=== PATIENT | female | born 1960 | race Caucasian/White ===

== ENCOUNTER 2018-11-16 17:39 | Inpatient (IN) ==
[2018-11-16] MEDS ORDERED: Prochlorperazine 10 MG/2 ML VIAL IM ONE (17:56)
--- NOTE | 2018-11-16 18:49 | Emergency Department Note ---
Disposition Clinical Impression: Suicidal ideation, Homicidal ideation Disposition: Admitted As Inpatient Condition: Good Time of Disposition: 20:51 General Adult HPI - General Chief complaint: ED Psychiatric Symptoms Stated complaint: si/hi Time Seen by Provider: 11/16/18 17:49 Source: EMS Limitations: no limitations - History of Present Illness Pain Scale: 2 - Related Data Home Medications Medication Instructions Recorded Confirmed Albuterol Neb [Proventil Neb] 2.5 mg IH DAILY PRN 05/13/18 09/07/18 Aspirin [Lo-Dose Aspirin EC] 81 mg PO DAILY 05/13/18 09/07/18 Atorvastatin [Lipitor] 10 mg PO HS 05/13/18 09/07/18 lamoTRIgine [Lamictal] 25 mg PO HS 05/13/18 09/07/18 metFORMIN [Glucophage] 500 mg PO DAILY 05/13/18 09/07/18 Previous Rx's Medication Instructions Recorded Ondansetron ODT [Zofran ODT] 4 mg SL Q6HR PRN 5 Days #10 09/07/18 tab.rapdis Allergies Allergy/AdvReac Type Severity Reaction Status Date / Time bee venom protein (honey bee) Allergy See Verified 10/27/18 21:48 Comments prednisone Allergy Hives Verified 10/27/18 21:48 methocarbamol [From Robaxin] AdvReac See Verified 10/27/18 21:48 Comments morphine AdvReac See Verified 10/27/18 21:48 Comments naproxen AdvReac See Verified 10/27/18 21:48 Comments promethazine AdvReac Nausea Verified 10/27/18 21:48 quetiapine [From Seroquel] AdvReac Muscle Pain Verified 10/27/18 21:48 rofecoxib [From Vioxx] AdvReac See Verified 10/27/18 21:48 Comments MMR Allergy Anaphylaxis Uncoded 09/04/18 02:25 Past Medical History - Past Medical History Medical history: Reports: asthma, diabetes, hyperlipidemia, hypertension Surgical history: Reports: non-contributory Psychiatric history: Reports: anxiety, depression, previous psychiatric hospitalization - Social History Smoking Status: Current every day smoker Smokeless Tobacco Status: No Alcohol use: Reports: none Drug use: Reports: none Physical Exam - General Limitations: no limitations General appearance: alert Course Vital Signs Temperature 98.2 F 11/16/18 17:46 Pulse Rate 109 11/16/18 17:46 Respiratory Rate 20 11/16/18 17:46 Blood Pressure 131/81 11/16/18 17:46 O2 Sat by Pulse Oximetry 99 11/16/18 17:46 Temperature 98.2 F 11/16/18 17:46 Pulse Rate 109 11/16/18 17:46 Respiratory Rate 20 11/16/18 17:46 Blood Pressure 131/81 11/16/18 17:46 O2 Sat by Pulse Oximetry 99 11/16/18 17:46 Oxygen Delivery Oxygen Delivery Room Air Medical Decision Making - Lab Data Result diagrams: 11/16/18 18:48 11/16/18 18:48 Lab Results 11/16/18 11/16/18 11/16/18 Range/Units 18:48 18:48 19:22 WBC 7.4 (4.3-11.1) K/mcL RBC 4.77 (3.82-4.97) M/mcL Hgb 14.3 (11.5-15.4) g/dL Hct 43.8 (35.3-44.9) % MCV 91.8 (83.0-100.0) fL MCH 30.0 (28.0-33.3) pg MCHC 32.6 (31.6-35.5) g/dL RDW 12.3 (11.5-14.5) % Plt Count 228 (140-400) K/mcL MPV 10.1 (9.4-12.4) fL Immature Gran % 0.3 (0-4) % Seg Neutrophils % 68.1 % Lymphocytes % 21.3 % Monocytes % 8.8 % Eosinophils % 0.8 % Basophils % 0.7 % Neutrophils # 5.1 (1.6-8.9) K/mcL Lymphocytes # 1.6 (0.6-4.6) K/mcL Monocytes # 0.7 (0.0-1.3) K/mcL Eosinophils # 0.1 (0.0-0.6) K/mcL Basophils # 0.1 (0.0-0.2) K/mcL Sodium 139 (136-145) mEq/L Potassium 3.5 (3.5-5.1) mEq/L Chloride 105 (98-107) mEq/L Carbon Dioxide 28 (23-29) mEq/L BUN 17 (6-20) mg/dL Creatinine 0.83 (0.60-1.20) mg/dL Est GFR ( Amer) > 60 (> 60) Est GFR (Non-Af Amer) > 60 (> 60) BUN/Creatinine Ratio 20 (6-26) Glucose 83 (70-105) mg/dL Calculated Osmolality 289 (280-300) Calcium 9.6 (8.6-10.3) mg/dL Urine Color Yellow (Yellow) Urine Clarity Clear (Clear) Urine pH 6.5 (5.0-8.0) pH Units Ur Specific [place] 1.028 H (1.010-1.025) Urine Protein Negative (Neg-Trace) mg/dL Urine Glucose (UA) Normal (Normal) mg/dL Urine Ketones Trace H (Negative) mg/dL Urine Blood Trace H (Negative) Urine Nitrite Negative (Negative) Urine Bilirubin Negative (Negative) Urine Urobilinogen Normal (Normal) mg/dL Ur Leukocyte Esterase Moderate H (Negative) Urine Microscopic RBC 5-15 H (0-3) per hpf Urine Microscopic WBC 50-100 H (0-3) per hpf Ur Squamous Epith Cells Many H (None-Few) per lpf Urine Bacteria Moderate H (None-Few) per hpf Hyaline Casts Moderate H (None-Few) per lpf Salicylates < 2.5 L (15.0-30.0) mg/dL Urine Opiates Screen (Ynlkyg=660) ng/mL Ur Buprenorphine Scrn (Cutoff=5) ng/mL Acetaminophen < 10 L (10-20) mcg/mL Ur Barbiturates Screen (Mohhyc=291) ng/mL Ur Phencyclidine Scrn (Cutoff=25) ng/mL Ur Amphetamines Screen (Xvmejk=9595) ng/mL U Benzodiazepines Scrn ([place]=480) ng/mL Urine Cocaine Screen (Cutoff= 300) ng/mL U Marijuana (THC) Screen (Cutoff = 50) ng/mL Ur Drug Screen Interp Ethyl Alcohol < 10 (Less than 10) mg/dL 11/16/18 Range/Units 19:22 WBC (4.3-11.1) K/mcL RBC (3.82-4.97) M/mcL Hgb (11.5-15.4) g/dL Hct (35.3-44.9) % MCV (83.0-100.0) fL MCH (28.0-33.3) pg MCHC (31.6-35.5) g/dL RDW (11.5-14.5) % Plt Count (140-400) K/mcL MPV (9.4-12.4) fL Immature Gran % (0-4) % Seg Neutrophils % % Lymphocytes % % Monocytes % % Eosinophils % % Basophils % % Neutrophils # (1.6-8.9) K/mcL Lymphocytes # (0.6-4.6) K/mcL Monocytes # (0.0-1.3) K/mcL Eosinophils # (0.0-0.6) K/mcL Basophils # (0.0-0.2) K/mcL Sodium (136-145) mEq/L Potassium (3.5-5.1) mEq/L Chloride (98-107) mEq/L Carbon Dioxide (23-29) mEq/L BUN (6-20) mg/dL Creatinine (0.60-1.20) mg/dL Est GFR ( Amer) (> 60) Est GFR (Non-Af Amer) (> 60) BUN/Creatinine Ratio (6-26) Glucose (70-105) mg/dL Calculated Osmolality (280-300) Calcium (8.6-10.3) mg/dL Urine Color (Yellow) Urine Clarity (Clear) Urine pH (5.0-8.0) pH Units Ur Specific [place] (1.010-1.025) Urine Protein (Neg-Trace) mg/dL Urine Glucose (UA) (Normal) mg/dL Urine Ketones (Negative) mg/dL Urine Blood (Negative) Urine Nitrite (Negative) Urine Bilirubin (Negative) Urine Urobilinogen (Normal) mg/dL Ur Leukocyte Esterase (Negative) Urine Microscopic RBC (0-3) per hpf Urine Microscopic WBC (0-3) per hpf Ur Squamous Epith Cells (None-Few) per lpf Urine Bacteria (None-Few) per hpf Hyaline Casts (None-Few) per lpf Salicylates (15.0-30.0) mg/dL Urine Opiates Screen Negative (Jigpgv=634) ng/mL Ur Buprenorphine Scrn Negative (Cutoff=5) ng/mL Acetaminophen (10-20) mcg/mL Ur Barbiturates Screen Negative (Ecgoyc=180) ng/mL Ur Phencyclidine Scrn Negative (Cutoff=25) ng/mL Ur Amphetamines Screen Negative (Wfnhww=2832) ng/mL U Benzodiazepines Scrn Positive H (Tcrzji=917) ng/mL Urine Cocaine Screen Negative (Cutoff= 300) ng/mL U Marijuana (THC) Screen Negative (Cutoff = 50) ng/mL Ur Drug Screen Interp See Below Ethyl Alcohol (Less than 10) mg/dL Attestation Statement - Attestation Attestation: I examined this patient and my medical decision-making was reviewed with the Resident Physician. I agree with the documented findings, disposition and treatment plan as described except to the extent set forth below. Patient 38-year-old female presents to emergency department with chief complaint of suicidal thoughts. Patient reports that she has had a traumatic brain injury and subsequently has been having changes in her behavior to the point that she is now feeling extremely depressed and wanting to hurt herself. Patient has also had intermittent thoughts of hurting others with this as well. Physical exam patient awake alert no acute distress patient has no focal neurological deficits Medical decision management the patient was medically cleared for psychiatric evaluation. Patient be evaluated by one.
--- NOTE | 2018-11-16 19:00 | Emergency Department Note ---
Disposition Clinical Impression: Suicidal ideation, Homicidal ideation Disposition: Admitted As Inpatient Condition: Good Time of Disposition: 20:51 General Adult HPI - General Chief complaint: ED Psychiatric Symptoms Stated complaint: si/hi Time Seen by Provider: 11/16/18 17:49 Source: EMS Limitations: no limitations - History of Present Illness HPI Narrative: 58-year-old female with history of TBI presenting to the emergency department for suicidal/homicidal ideations. Patient states that for the past 4 days she has had increased thoughts of harming others with no specific person and mind or plan. She also admits to thoughts of harming herself. She states 2 nights ago she took extra sleeping pills Rozerem she does not know how many she took she said she had a few in her hand. She took them with the hopes that she would not wake up. Patient also states that in the past few days she found her son's fishing knife which is very sharp she thought about cutting herself with it but decided to hide it for later. She admits to migraine headaches after her traumatic brain injury. She admits to photophobia phonophobia, headache that she has had for the past 3 days. Patient denies chest pain, shortness of breath, abdominal pain, urinary changes, bowel changes, vision changes. Pain Scale: 2 - Related Data Home Medications Medication Instructions Recorded Confirmed Albuterol Neb [Proventil Neb] 2.5 mg IH DAILY PRN 05/13/18 09/07/18 Aspirin [Lo-Dose Aspirin EC] 81 mg PO DAILY 05/13/18 09/07/18 Atorvastatin [Lipitor] 10 mg PO HS 05/13/18 09/07/18 lamoTRIgine [Lamictal] 25 mg PO HS 05/13/18 09/07/18 metFORMIN [Glucophage] 500 mg PO DAILY 05/13/18 09/07/18 Previous Rx's Medication Instructions Recorded Ondansetron ODT [Zofran ODT] 4 mg SL Q6HR PRN 5 Days #10 09/07/18 tab.rapdis Allergies Allergy/AdvReac Type Severity Reaction Status Date / Time bee venom protein (honey bee) Allergy See Verified 10/27/18 21:48 Comments prednisone Allergy Hives Verified 10/27/18 21:48 methocarbamol [From Robaxin] AdvReac See Verified 10/27/18 21:48 Comments morphine AdvReac See Verified 10/27/18 21:48 Comments naproxen AdvReac See Verified 10/27/18 21:48 Comments promethazine AdvReac Nausea Verified 10/27/18 21:48 quetiapine [From Seroquel] AdvReac Muscle Pain Verified 10/27/18 21:48 rofecoxib [From Vioxx] AdvReac See Verified 10/27/18 21:48 Comments MMR Allergy Anaphylaxis Uncoded 09/04/18 02:25 All systems ED: reviewed and negative except as stated. Review of Systems: As Per HPI Constitutional: Denies: fever, chills Eyes: Denies: eye pain, eye discharge ENT ED: Denies: ear pain, throat pain Cardiovascular: Denies: chest pain, palpitations Respiratory: Denies: cough, dyspnea Gastrointestinal: Denies: abdominal pain, nausea Genitourinary: Denies: urgency, dysuria Musculoskeletal: Denies: back pain, neck pain Integumentary: Denies: rash, abrasion Neurological: Reports: headache. Denies: weakness Psychiatric: Denies: anxiety, depression Endocrine: Denies: fatigue, heat or cold intolerance Hematological/Lymphatic: Denies: easy bleeding, easy bruising Allergic/Immunologic: Denies: facial swelling, urticaria Past Medical History - Past Medical History Attestation: Yes The following information was validated with the patient. Source: patient Medical history: Reports: asthma, diabetes, hyperlipidemia, hypertension Surgical history: Reports: non-contributory Psychiatric history: Reports: anxiety, depression, previous psychiatric hospitalization - Social History Smoking Status: Current every day smoker Smokeless Tobacco Status: No Alcohol use: Reports: none Drug use: Reports: none Physical Exam - General Limitations: no limitations General appearance: alert - Head Head exam: atraumatic, normocephalic - Eye Eye exam: Present: normal appearance, PERRL, EOMI. Absent: scleral icterus, conjunctival injection - ENT ENT exam: normal exam, normal oropharynx, mucous membranes moist - Neck Neck exam: Present: normal inspection, full ROM, trachea midline - Chest Chest inspection: Present: normal inspection, symmetric chest wall rise. Absent: tenderness - Respiratory Respiratory exam: Present: normal lung sounds bilaterally. Absent: respiratory distress, wheezes, stridor - Cardiovascular Cardiovascular exam: Present: regular rate, normal rhythm, normal heart sounds - Abdominal Exam Abdominal exam: Present: soft, Non-Tender, normal bowel sounds. Absent: tenderness, distention, guarding, rebound, rigidity - Extremities Exam Extremities exam: Present: normal inspection, full ROM - Back Exam Back exam: Present: normal inspection, full ROM - Neurological Exam Neurological exam: Present: alert, oriented X3, CN II-XII intact, normal gait, motor sensory deficit - Psychiatric Psychiatric exam: Present: normal affect, normal mood - Skin Skin exam: Present: warm, dry Course Vital Signs Temperature 98.2 F 11/16/18 17:46 Pulse Rate 109 11/16/18 17:46 Respiratory Rate 20 11/16/18 17:46 Blood Pressure 131/81 11/16/18 17:46 O2 Sat by Pulse Oximetry 99 11/16/18 17:46 Temperature 98.2 F 11/16/18 17:46 Pulse Rate 109 11/16/18 17:46 Respiratory Rate 20 11/16/18 17:46 Blood Pressure 131/81 11/16/18 17:46 O2 Sat by Pulse Oximetry 99 11/16/18 17:46 Oxygen Delivery Oxygen Delivery Room Air Medical Decision Making - MDM Narrative Medical decision making narrative: Patient 58-year-old female history of traumatic brain injury presenting the emergency department with SI/HI. I will provide a medical screening evaluation as well as perform a head CT with a history of traumatic brain injury and current headache. I will have one 1A see the patient pending normal evaluation. Genitourinary traction will give her one dose of Keflex here in the emergency department. Patient seen by 1A who will admit the patient. - Medical Records Medical records reviewed: Yes I reviewed the patient's medical records. - Lab Data Lab results reviewed: Yes I reviewed the patient's lab results. Result diagrams: 11/16/18 18:48 11/16/18 18:48 Lab Results 11/16/18 11/16/18 11/16/18 Range/Units 18:48 18:48 19:22 WBC 7.4 (4.3-11.1) K/mcL RBC 4.77 (3.82-4.97) M/mcL Hgb 14.3 (11.5-15.4) g/dL Hct 43.8 (35.3-44.9) % MCV 91.8 (83.0-100.0) fL MCH 30.0 (28.0-33.3) pg MCHC 32.6 (31.6-35.5) g/dL RDW 12.3 (11.5-14.5) % Plt Count 228 (140-400) K/mcL MPV 10.1 (9.4-12.4) fL Immature Gran % 0.3 (0-4) % Seg Neutrophils % 68.1 % Lymphocytes % 21.3 % Monocytes % 8.8 % Eosinophils % 0.8 % Basophils % 0.7 % Neutrophils # 5.1 (1.6-8.9) K/mcL Lymphocytes # 1.6 (0.6-4.6) K/mcL Monocytes # 0.7 (0.0-1.3) K/mcL Eosinophils # 0.1 (0.0-0.6) K/mcL Basophils # 0.1 (0.0-0.2) K/mcL Sodium 139 (136-145) mEq/L Potassium 3.5 (3.5-5.1) mEq/L Chloride 105 (98-107) mEq/L Carbon Dioxide 28 (23-29) mEq/L BUN 17 (6-20) mg/dL Creatinine 0.83 (0.60-1.20) mg/dL Est GFR ( Amer) > 60 (> 60) Est GFR (Non-Af Amer) > 60 (> 60) BUN/Creatinine Ratio 20 (6-26) Glucose 83 (70-105) mg/dL Calculated Osmolality 289 (280-300) Calcium 9.6 (8.6-10.3) mg/dL Urine Color Yellow (Yellow) Urine Clarity Clear (Clear) Urine pH 6.5 (5.0-8.0) pH Units Ur Specific [place] 1.028 H (1.010-1.025) Urine Protein Negative (Neg-Trace) mg/dL Urine Glucose (UA) Normal (Normal) mg/dL Urine Ketones Trace H (Negative) mg/dL Urine Blood Trace H (Negative) Urine Nitrite Negative (Negative) Urine Bilirubin Negative (Negative) Urine Urobilinogen Normal (Normal) mg/dL Ur Leukocyte Esterase Moderate H (Negative) Urine Microscopic RBC 5-15 H (0-3) per hpf Urine Microscopic WBC 50-100 H (0-3) per hpf Ur Squamous Epith Cells Many H (None-Few) per lpf Urine Bacteria Moderate H (None-Few) per hpf Hyaline Casts Moderate H (None-Few) per lpf Salicylates < 2.5 L (15.0-30.0) mg/dL Urine Opiates Screen (Pption=468) ng/mL Ur Buprenorphine Scrn (Cutoff=5) ng/mL Acetaminophen < 10 L (10-20) mcg/mL Ur Barbiturates Screen (Bvjwha=066) ng/mL Ur Phencyclidine Scrn (Cutoff=25) ng/mL Ur Amphetamines Screen (Ooliac=4028) ng/mL U Benzodiazepines Scrn (Yrdgqh=314) ng/mL Urine Cocaine Screen (Cutoff= 300) ng/mL U Marijuana (THC) Screen (Cutoff = 50) ng/mL Ur Drug Screen Interp Ethyl Alcohol < 10 (Less than 10) mg/dL 11/16/18 Range/Units 19:22 WBC (4.3-11.1) K/mcL RBC (3.82-4.97) M/mcL Hgb (11.5-15.4) g/dL Hct (35.3-44.9) % MCV (83.0-100.0) fL MCH (28.0-33.3) pg MCHC (31.6-35.5) g/dL RDW (11.5-14.5) % Plt Count (140-400) K/mcL MPV (9.4-12.4) fL Immature Gran % (0-4) % Seg Neutrophils % % Lymphocytes % % Monocytes % % Eosinophils % % Basophils % % Neutrophils # (1.6-8.9) K/mcL Lymphocytes # (0.6-4.6) K/mcL Monocytes # (0.0-1.3) K/mcL Eosinophils # (0.0-0.6) K/mcL Basophils # (0.0-0.2) K/mcL Sodium (136-145) mEq/L Potassium (3.5-5.1) mEq/L Chloride (98-107) mEq/L Carbon Dioxide (23-29) mEq/L BUN (6-20) mg/dL Creatinine (0.60-1.20) mg/dL Est GFR ( Amer) (> 60) Est GFR (Non-Af Amer) (> 60) BUN/Creatinine Ratio (6-26) Glucose (70-105) mg/dL Calculated Osmolality (280-300) Calcium (8.6-10.3) mg/dL Urine Color (Yellow) Urine Clarity (Clear) Urine pH (5.0-8.0) pH Units Ur Specific [place] (1.010-1.025) Urine Protein (Neg-Trace) mg/dL Urine Glucose (UA) (Normal) mg/dL Urine Ketones (Negative) mg/dL Urine Blood (Negative) Urine Nitrite (Negative) Urine Bilirubin (Negative) Urine Urobilinogen (Normal) mg/dL Ur Leukocyte Esterase (Negative) Urine Microscopic RBC (0-3) per hpf Urine Microscopic WBC (0-3) per hpf Ur Squamous Epith Cells (None-Few) per lpf Urine Bacteria (None-Few) per hpf Hyaline Casts (None-Few) per lpf Salicylates (15.0-30.0) mg/dL Urine Opiates Screen Negative (Lpeicc=840) ng/mL Ur Buprenorphine Scrn Negative (Cutoff=5) ng/mL Acetaminophen (10-20) mcg/mL Ur Barbiturates Screen Negative (Mkzykz=335) ng/mL Ur Phencyclidine Scrn Negative (Cutoff=25) ng/mL Ur Amphetamines Screen Negative (Wixjpg=5152) ng/mL U Benzodiazepines Scrn Positive H (Qcmotw=265) ng/mL Urine Cocaine Screen Negative (Cutoff= 300) ng/mL U Marijuana (THC) Screen Negative (Cutoff = 50) ng/mL Ur Drug Screen Interp See Below Ethyl Alcohol (Less than 10) mg/dL - Radiology Data Radiology results reviewed: Yes I reviewed the patient's radiology results. Head CT 11/16/18 18:26 IMPRESSION: No acute intracranial abnormality. D/ / Nino Up MD / Nino Up MD Interpreting Provider: Nino Up MD
[2018-11-16 19:35] LABS: Basophils # 0.1 K/mcL (0.0-0.2); Basophils % 0.7 %; Eosinophils # 0.1 K/mcL (0.0-0.6); Eosinophils % 0.8 %; Hematocrit 43.8 % (35.3-44.9); Hemoglobin 14.3 g/dL (11.5-15.4); Immature Granulocytes % 0.3 % (0-4); Lymphocytes # 1.6 K/mcL (0.6-4.6); Lymphocytes % 21.3 %; Mean Corpuscular HGB Conc 32.6 g/dL (31.6-35.5); Mean Corpuscular Volume 91.8 fL (83.0-100.0); Mean Platelet Volume 10.1 fL (9.4-12.4); Monocytes # 0.7 K/mcL (0.0-1.3); Monocytes % 8.8 %; Neutrophils # 5.1 K/mcL (1.6-8.9); Platelet Count 228 K/mcL (140-400); Red Blood Count 4.77 M/mcL (3.82-4.97); Red Cell Distribution Width 12.3 % (11.5-14.5); Segmented Neutrophils % 68.1 %; White Blood Count 7.4 K/mcL (4.3-11.1)
[2018-11-16 19:42] LABS: Bilirubin,Urine Negative (Negative); Blood,Urine Trace (Negative); Clarity,Urine Clear (Clear); Color,Urine Yellow (Yellow); Glucose,Urine (UA) Normal (Normal); Ketones,Urine Trace mg/dL (Negative); Leukocyte Esterase,Urine Moderate (Negative); Nitrite,Urine Negative (Negative); PH,Urine 6.5 pH Units (5.0-8.0); Protein,Urine Negative (Neg-Trace); Specific Gravity,Urine 1.028 (1.010-1.025); Urobilinogen,Urine Normal (Normal)
[2018-11-16 19:45] LABS: Amphetamine Screen,Urine Negative ng/mL (Cutoff=1000); Bacteria,Urine Moderate per hpf (None-Few); Barbiturate Screen,Urine Negative ng/mL (Cutoff=200); Benzodiazepines Screen,Urine Positive ng/mL (Cutoff=200); Cannabinoid Screen,Urine Negative ng/mL (Cutoff = 50); Cocaine Screen,Urine Negative ng/mL (Cutoff= 300); Hyaline Casts,Urine Moderate per lpf (None-Few); Opiate Screen,Urine Negative ng/mL (Cutoff=300); Phencyclidine Screen,Urine Negative ng/mL (Cutoff=25); Squamous Epithelial Cell,Urine Many per lpf (None-Few); WBC,Urine 50-100 per hpf (0-3)
[2018-11-16 19:51] LABS: Acetaminophen < 10 mcg/mL (10-20); BUN/Creatinine Ratio 20 (6-26); Blood Urea Nitrogen 17 mg/dL (6-20); Calcium 9.6 mg/dL (8.6-10.3); Carbon Dioxide 28 mEq/L (23-29); Chloride 105 mEq/L (98-107); Ethanol < 10 mg/dL (Less than 10); Glucose 83 mg/dL (70-105); Osmolality,Calculated 289 (280-300); Potassium 3.5 mEq/L (3.5-5.1); Salicylate < 2.5 mg/dL (15.0-30.0); Sodium 139 mEq/L (136-145); eGFR For African Americans > 60 (> 60); eGFR For Non-African Americans > 60 (> 60)
[2018-11-16] MEDS ORDERED: cephALEXin 500 MG CAPSULE PO ONE (20:02)
[2018-11-16] MEDS ORDERED: *HR* LORazepam 2 MG/ML VIAL IM PRN (21:13)
[2018-11-16] MEDS ORDERED: Haloperidol Lactate 5 MG/ML VIAL IM PRN (21:13)
[2018-11-16] MEDS ORDERED: MOM Conc 10 ML UD.LIQ PO PRN (21:13)
[2018-11-16] MEDS ORDERED: *HR* LORazepam 1 MG TABLET PO PRN (21:13)
[2018-11-16] MEDS ORDERED: Mag Hydrox/Al Hydrox/Simeth 30 ML UDC PO PRN (21:13)
[2018-11-16] MEDS ORDERED: hydrOXYzine pamoate 25 MG CAPSULE PO PRN (21:13)
[2018-11-16] MEDS ORDERED: traZODone 50 MG TABLET PO PRN (21:13)
[2018-11-17] MEDS: Nicotine 21 MG PATCH.TD24 TD SCH (09:11)
[2018-11-17] MEDS: Acetaminophen 325 MG TABLET PO PRN (09:42)
[2018-11-17] MEDS ORDERED: Ibuprofen 600 MG TABLET PO ONE (15:19)
--- NOTE | 2018-11-17 16:14 | Electrocardiograph Report ---
[address] [place], [place] [address] Test Date: 2018-11-16 Pat Name: Madelin Gary Department: [id number] Room: 1A45 Gender: F Decision Analyst: : 1960 Requested By: [id number] Order Number: [id number] Reading MD: Palmira Cool Measurements Intervals [place] Rate: 100 P: 74 MA: 156 QRS: 0 QRSD: 92 T: 62 QT: 357 QTc: 461 Interpretive Statements Sinus tachycardia Electronically Signed On 11-17-2018 16:12:24 EDT by Palmira Cool
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
[2018-11-17] MEDS: lamoTRIgine 100 MG TABLET PO SCH (17:46)
[2018-11-17 19:47] LABS: Thyroid Stimulating Hormone 1.934 mcIU/mL (0.340-5.600)
[2018-11-17] MEDS: Gabapentin 400 MG CAPSULE PO SCH (20:48)
[2018-11-17] MEDS: Ibuprofen 400 MG TABLET PO PRN (22:15)
[2018-11-17] MEDS: Fluticasone Propionate Nasal 50 MCG/SPRAY BOTTLE NS SCH (22:15)
[2018-11-18] MEDS: Ibuprofen 400 MG TABLET PO PRN ×2 (04:00→12:23)
[2018-11-18] MEDS: Gabapentin 400 MG CAPSULE PO SCH ×3 (09:11→21:15)
[2018-11-18] MEDS: *HR* Metformin 500 MG TABLET PO SCH (09:12)
[2018-11-18] MEDS: lamoTRIgine 100 MG TABLET PO SCH (09:12)
[2018-11-18] MEDS: Multivit/Ca/Min/Fe/FA 1 TAB TABLET PO SCH (09:12)
[2018-11-18] MEDS: Nicotine 21 MG PATCH.TD24 TD SCH (09:13)
[2018-11-18] MEDS: hydrOXYzine pamoate 25 MG CAPSULE PO PRN ×2 (09:14→14:38)
[2018-11-18] MEDS: Fluticasone Propionate Nasal 50 MCG/SPRAY BOTTLE NS SCH ×2 (10:11→21:16)
--- NOTE | 2018-11-18 18:03 | Psychiatry Progress Note ---
Date of Encounter: 11/18/18 Time of Encounter: 17:00 Subjective Interval history: Patient tells me "I feel much much better". She is consistently taking her medications as they were prescribed and states that she is must much less agitated and better able to relax and function. "I was [id number] at home and I do not like that". Patient tells me that she got a little annoyed and agitated at another patient today but walked away. "That was good for me that I did not say anything or react and was able to calm down". She denies any side effects of the medication. Her headache has resolved. She is wanting to talk to the manager social media about new housing possibilities. She states that she talked her daughter today and feels that it would be a good idea if she live someplace else; to have a better quality of life and have less stress. She has taken a couple Vistaril which she finds effective for her anxiety. She is hopeful to talk to the manager social media tomorrow and like it housing and possibly be discharged by Friday. She denies any suicidal/homicidal ideation. Review of Systems Psychiatric: Reports: depression, anxiety, abnormal sleep pattern, suicidal ideation, confusion, memory loss, difficulty concentrating, irritability, mood swings Results - Vital Signs Vital Signs: Temp Pulse Resp BP Pulse Ox 97.3 F L 86 20 109/69 97 11/18/18 09:00 11/18/18 09:00 11/18/18 09:00 11/18/18 09:00 11/18/18 09:00 - Labs Labs: Laboratory Results - last 24 hr 11/16/18 18:48 TSH 1.934 - Impressions ITS Impressions Head CT 11/16/18 18:26 IMPRESSION: No acute intracranial abnormality. D/ / Nino Up MD / Nino Up MD Interpreting Provider: Nino Up MD Assessment and Plan (1) Bipolar disorder, mixed Current visit: Yes Status: Acute Plan: Continue hospitalization, Close observation, Suicide Precautions per unit protocol, Encourage participation in unit milieu, Monitor sleep, Monitor appetite Risks, benefits, side effects, alternatives discussed w/pt: Yes (Verfied current med regimen and restarted medications) Patient agreeable to treatment: Yes (Pateint has stabilzed considerably in her mood n the past 24 hours) (2) Traumatic brain injury Current visit: Yes Status: Acute Risks, benefits, side effects, alternatives discussed w/pt: Yes Patient agreeable to treatment: Yes Qualifiers: Encounter type: initial encounter Loss of consciousness presence/duration: with LOC > 24 hr with return to prior conscious level Qualified Code(s): S06.9X5A - Unspecified intracranial injury with loss of consciousness greater than 24 hours with return to pre-existing conscious level, initial encounter Consult Discharge Plan - Plan Referrals: NONE,PCP [Primary Care Provider] - Psychiatry Exam - Constitutional Vitals: Temp Pulse Resp BP Pulse Ox 97.3 F L 86 20 109/69 97 11/18/18 09:00 11/18/18 09:00 11/18/18 09:00 11/18/18 09:00 11/18/18 09:00 General appearance: age & developmentally appropriate, well-groomed, other (Appearance/hygiene has greatly improved) - Musculoskeletal Gait: normal Station: relaxed Strength & Tone: normal for patient - Psychiatric Patient Orientation: Yes Person, Yes Time, Yes Place, Yes Circumstance Level of alertness: Alert Behavior: cooperative, anxious (mildly) Psychomotor activity: Normal Eye Contact: Maintains Eye Contact Mood Description: Depressed (Slightly), Anxious, Other (Her mood has greatly stabilized in the past 24 hours) Affect description: congruent with mood Speech Volume: Normal Speech pattern: normal rate, normal rhythm, normal tone, fluent Language & Vocabulary: consistent with education Thought Process: Intact, Linear, Goal Oriented Thought Content: Yes Intact Attention Span Ability: Capable of Focused Attention Memory Description: Grossly Intact Patient Reliability: Reliable Historian Fund of knowledge: Yes average Intelligence Estimate: Average Judgment: Fair Insight: Partial
[2018-11-19] MEDS: Acetaminophen 325 MG TABLET PO PRN (03:31)
[2018-11-19] MEDS: Gabapentin 400 MG CAPSULE PO SCH ×3 (09:07→21:10)
[2018-11-19] MEDS: lamoTRIgine 100 MG TABLET PO SCH (09:07)
[2018-11-19] MEDS: *HR* Metformin 500 MG TABLET PO SCH (09:07)
[2018-11-19] MEDS: hydrOXYzine pamoate 25 MG CAPSULE PO PRN ×2 (09:08→21:10)
[2018-11-19] MEDS: Fluticasone Propionate Nasal 50 MCG/SPRAY BOTTLE NS SCH ×2 (09:08→21:12)
[2018-11-19] MEDS: Multivit/Ca/Min/Fe/FA 1 TAB TABLET PO SCH (09:08)
[2018-11-19] MEDS: Nicotine 21 MG PATCH.TD24 TD SCH (09:09)
--- NOTE | 2018-11-19 11:23 | Psychiatry Progress Note ---
Date of Encounter: 11/19/18 Time of Encounter: 09:40 Subjective Interval history: She reports she is doing better. She said her mood is better. No suicidal or homicidal thoughts, ideations, or plans. No psychosis. Irritability is improved. Results - Vital Signs Vital Signs: Temp Pulse Resp BP Pulse Ox 98.6 F 87 20 132/78 94 11/19/18 09:00 11/19/18 09:00 11/19/18 09:00 11/19/18 09:00 11/19/18 09:00 - Labs Labs: Laboratory Results - last 24 hr 11/19/18 08:13 POC Glucose 98 - Impressions ITS Impressions Head CT 11/16/18 18:26 IMPRESSION: No acute intracranial abnormality. D/ / Nino Up MD / Nino Up MD Interpreting Provider: Nino Up MD Assessment and Plan (1) Bipolar disorder, mixed Current visit: Yes Status: Acute Plan: Continue hospitalization, Close observation, Suicide Precautions per unit protocol, Encourage participation in unit milieu, Group Therapy, Monitor sleep, Monitor appetite Additional Plan: Continue current medications. Encourage group therapy. Therapist work on linkage. Risks, benefits, side effects, alternatives discussed w/pt: Yes (Verfied current med regimen and restarted medications) Patient agreeable to treatment: Yes (Pateint has stabilzed considerably in her mood n the past 24 hours) Consult Discharge Plan - Plan Referrals: NONE,PCP [Primary Care Provider] - Psychiatry Exam - Constitutional Vitals: Temp Pulse Resp BP Pulse Ox 98.6 F 87 20 132/78 94 11/19/18 09:00 11/19/18 09:00 11/19/18 09:00 11/19/18 09:00 11/19/18 09:00 General appearance: age & developmentally appropriate, well-groomed, well- nourished - Musculoskeletal Gait: normal Station: relaxed Strength & Tone: normal for patient - Psychiatric Patient Orientation: Yes Person, Yes Time, Yes Place, Yes Circumstance Level of alertness: Alert Behavior: calm, cooperative Psychomotor activity: Normal Eye Contact: Maintains Eye Contact Mood Description: Euthymic/stable Patient description of mood: good Affect description: congruent with mood, full range Speech Volume: Normal Speech pattern: normal rate, normal rhythm, normal tone, fluent, spontaneous Language & Vocabulary: consistent with education Thought Process: Linear, Goal Oriented Thought Content: No Suicidal ideation, No Homicidal ideation, No Overt delusions Perceptual Disturbances: No Auditory hallucinations, No Visual hallucinations Attention Span Ability: Capable of Focused Attention Memory Description: Grossly Intact Patient Reliability: Reliable Historian Fund of knowledge: Yes abstraction ability, Yes aware of current events Intelligence Estimate: Average Judgment: Good Insight: Full
[2018-11-19] MEDS: Ibuprofen 400 MG TABLET PO PRN (14:13)
[2018-11-20] MEDS: Ibuprofen 400 MG TABLET PO PRN (01:53)
[2018-11-20] MEDS: Fluticasone Propionate Nasal 50 MCG/SPRAY BOTTLE NS SCH (08:22)
[2018-11-20] MEDS: *HR* Metformin 500 MG TABLET PO SCH (08:23)
[2018-11-20] MEDS: Nicotine 21 MG PATCH.TD24 TD SCH (08:23)
[2018-11-20] MEDS: Gabapentin 400 MG CAPSULE PO SCH (08:23)
[2018-11-20] MEDS: Multivit/Ca/Min/Fe/FA 1 TAB TABLET PO SCH (08:23)
[2018-11-20] MEDS: lamoTRIgine 100 MG TABLET PO SCH (08:24)
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
[2018-11-20 09:36] VITALS: BP 133/80
[2018-11-20] MEDS ORDERED: traZODone 50 MG TABLET PO SCH (21:00)
== END 2018-11-20 11:05 | disposition home or self-care (01) | DRG 885 ==
LOC: EMEROOARM 17:39 → SUATTDRO 20:49 → 1ANU 20:49
PROVIDERS: ADMIT Psychiatry & Neurology Psychiatry; ATTEND Psychiatry & Neurology Psychiatry

== ENCOUNTER 2019-08-19 10:38 | Inpatient (IN) ==
[2019-08-19 11:16] LABS: Amphetamine Screen,Urine Negative ng/mL (Cutoff=1000); Barbiturate Screen,Urine Positive ng/mL (Cutoff=200); Benzodiazepines Screen,Urine Negative ng/mL (Cutoff=200); Cannabinoid Screen,Urine Negative ng/mL (Cutoff = 50); Cocaine Screen,Urine Negative ng/mL (Cutoff= 300); Opiate Screen,Urine Negative ng/mL (Cutoff=300); Phencyclidine Screen,Urine Negative ng/mL (Cutoff=25)
[2019-08-19 11:16] LABS: Basophils # 0.1 K/mcL (0.0-0.2); Basophils % 1.1 %; Eosinophils # 0.1 K/mcL (0.0-0.6); Eosinophils % 1.5 %; Hematocrit 41.5 % (35.3-44.9); Hemoglobin 13.6 g/dL (11.5-15.4); Immature Granulocytes % 0.7 % (0-4); Lymphocytes # 1.8 K/mcL (0.6-4.6); Lymphocytes % 24.5 %; Mean Corpuscular HGB Conc 32.8 g/dL (31.6-35.5); Mean Corpuscular Hemoglobin 30.5 pg (28.0-33.3); Mean Platelet Volume 9.9 fL (9.4-12.4); Monocytes # 0.6 K/mcL (0.0-1.3); Monocytes % 8.3 %; Neutrophils # 4.7 K/mcL (1.6-8.9); Platelet Count 192 K/mcL (140-400); Red Blood Count 4.46 M/mcL (3.82-4.97); Segmented Neutrophils % 63.9 %; White Blood Count 7.3 K/mcL (4.3-11.1)
[2019-08-19 11:46] LABS: Acetaminophen < 10 mcg/mL (10-20); BUN/Creatinine Ratio 13 (6-26); Blood Urea Nitrogen 10 mg/dL (6-20); Calcium 9.2 mg/dL (8.6-10.3); Carbon Dioxide 26 mEq/L (23-29); Chloride 106 mEq/L (98-107); Ethanol < 10 mg/dL (Less than 10); Glucose 106 mg/dL (70-105); Osmolality,Calculated 287 (280-300); Salicylate < 2.5 mg/dL (15.0-30.0); Sodium 139 mEq/L (136-145); Troponin I < 0.03 ng/mL (< 0.04); eGFR For African Americans > 60 (> 60); eGFR For Non-African Americans > 60 (> 60)
[2019-08-19] MEDS ORDERED: *HR* LORazepam 1 MG TABLET PO PRN (12:51)
[2019-08-19] MEDS ORDERED: haloperidoL 5 MG TABLET PO PRN (12:51)
[2019-08-19] MEDS ORDERED: MOM Conc 10 ML UD.LIQ PO PRN (12:51)
[2019-08-19] MEDS ORDERED: Haloperidol Lactate 5 MG/ML VIAL IM PRN (12:51)
[2019-08-19] MEDS ORDERED: hydrOXYzine pamoate 25 MG CAPSULE PO PRN (12:51)
[2019-08-19] MEDS ORDERED: *HR* LORazepam 2 MG/ML VIAL IM PRN (12:51)
[2019-08-19] MEDS ORDERED: Mag Hydrox/Al Hydrox/Simeth 30 ML UDC PO PRN (12:51)
[2019-08-19] MEDS ORDERED: tiZANidine 4 MG TABLET PO PRN (13:26)
[2019-08-19] MEDS ORDERED: Ipratropium/Albuterol Neb 3 ML IH PRN (13:26)
[2019-08-19] MEDS: Pregabalin 50 MG CAPSULE PO SCH ×2 (14:45→20:17)
[2019-08-19] MEDS: hydrOXYzine pamoate 25 MG CAPSULE PO PRN (20:22)
[2019-08-19] MEDS: Nicotine 14 MG PATCH.TD24 TD SCH (20:25)
[2019-08-20] MEDS: lamoTRIgine 100 MG TABLET PO SCH (08:40)
[2019-08-20] MEDS: Multivit/Ca/Min/Fe/FA 1 TAB TABLET PO SCH (08:40)
[2019-08-20] MEDS: Pregabalin 50 MG CAPSULE PO SCH ×3 (08:41→20:02)
[2019-08-20] MEDS: lisinopriL 5 MG TABLET PO SCH (08:41)
[2019-08-20] MEDS: Propranolol LA (24 HR) 80 MG CAP.SA.24H PO SCH (08:41)
[2019-08-20] MEDS: Nicotine 14 MG PATCH.TD24 TD SCH (08:43)
[2019-08-20] MEDS: *HR* Metformin 500 MG TABLET PO SCH (08:57)
[2019-08-20] MEDS: EPA PO SCH (08:57)
[2019-08-20] MEDS: FISH OIL PO SCH (08:57)
[2019-08-20] MEDS: OMEGA PO SCH (08:57)
[2019-08-20] MEDS: DHA PO SCH (08:57)
[2019-08-20] MEDS: hydrOXYzine pamoate 25 MG CAPSULE PO PRN (20:02)
[2019-08-21] MEDS: Ibuprofen 400 MG TABLET PO PRN ×3 (02:14→21:55)
[2019-08-21] MEDS ORDERED: CLEAR EYES NATURAL TEARS 15 ML BOTTLE BOTH EYES PRN (09:19)
[2019-08-21] MEDS: Nicotine 14 MG PATCH.TD24 TD SCH (09:21)
[2019-08-21] MEDS: lamoTRIgine 100 MG TABLET PO SCH (09:24)
[2019-08-21] MEDS: *HR* Metformin 500 MG TABLET PO SCH (09:26)
[2019-08-21] MEDS: lisinopriL 5 MG TABLET PO SCH (09:27)
[2019-08-21] MEDS: Propranolol LA (24 HR) 80 MG CAP.SA.24H PO SCH (09:27)
[2019-08-21] MEDS: Pregabalin 50 MG CAPSULE PO SCH ×3 (09:28→20:13)
[2019-08-21] MEDS: Multivit/Ca/Min/Fe/FA 1 TAB TABLET PO SCH (09:28)
[2019-08-21] MEDS: Lidocaine OINT 35.44 GM TUBE TP PRN ×2 (12:13→20:14)
[2019-08-21] MEDS: FISH OIL PO SCH (12:43)
[2019-08-21] MEDS: DHA PO SCH (12:43)
[2019-08-21] MEDS: OMEGA PO SCH (12:43)
[2019-08-21] MEDS: EPA PO SCH (12:43)
[2019-08-21] MEDS: Acetaminophen/Butalbital/CaffeineTABLET PO PRN (17:29)
[2019-08-21] MEDS: hydrOXYzine pamoate 25 MG CAPSULE PO PRN (21:55)
[2019-08-21] MEDS: traZODone 50 MG TABLET PO PRN (21:55)
[2019-08-22] MEDS: Nicotine 14 MG PATCH.TD24 TD SCH (08:37)
[2019-08-22] MEDS: Pregabalin 50 MG CAPSULE PO SCH ×3 (08:38→20:30)
[2019-08-22] MEDS: lamoTRIgine 100 MG TABLET PO SCH (08:39)
[2019-08-22] MEDS: *HR* Metformin 500 MG TABLET PO SCH (08:41)
[2019-08-22] MEDS: Multivit/Ca/Min/Fe/FA 1 TAB TABLET PO SCH (08:42)
[2019-08-22] MEDS: lisinopriL 5 MG TABLET PO SCH (08:42)
[2019-08-22] MEDS: Propranolol LA (24 HR) 80 MG CAP.SA.24H PO SCH (08:42)
[2019-08-22] MEDS: Acetaminophen/Butalbital/CaffeineTABLET PO PRN (14:21)
[2019-08-22] MEDS: hydrOXYzine pamoate 25 MG CAPSULE PO PRN (20:30)
[2019-08-22] MEDS: traZODone 50 MG TABLET PO PRN (20:31)
[2019-08-23] MEDS: Ibuprofen 400 MG TABLET PO PRN (04:05)
[2019-08-23] MEDS: Lidocaine OINT 35.44 GM TUBE TP PRN (04:05)
[2019-08-23 08:54] VITALS: BP 136/77
[2019-08-23] MEDS: Nicotine 14 MG PATCH.TD24 TD SCH (09:08)
[2019-08-23] MEDS: Multivit/Ca/Min/Fe/FA 1 TAB TABLET PO SCH (09:10)
[2019-08-23] MEDS: lamoTRIgine 100 MG TABLET PO SCH (09:10)
[2019-08-23] MEDS: Propranolol LA (24 HR) 80 MG CAP.SA.24H PO SCH (09:11)
[2019-08-23] MEDS: *HR* Metformin 500 MG TABLET PO SCH (09:11)
[2019-08-23] MEDS: Pregabalin 50 MG CAPSULE PO SCH (09:11)
[2019-08-23] MEDS: lisinopriL 5 MG TABLET PO SCH (09:12)
== END 2019-08-23 10:20 | disposition home or self-care (01) | DRG 885 ==
LOC: EMEROOARM 10:38 → 1ANU 12:34 → SUATTDRO 12:34 → 1ANU 12:58
PROVIDERS: ADMIT Psychiatry & Neurology Psychiatry; ATTEND Psychiatry & Neurology Psychiatry